=== PATIENT | male | born 1955 | race Caucasian/White ===

== ENCOUNTER 2020-12-18 15:31 | Inpatient (IN) | payer OTHER ==
[~2020-12-18] VITALS: Ht 172.7 cm; Wt 74.4 kg
[2020-12-18 15:40] LABS: COLLECTION METHOD CLEAN CATCH
[2020-12-18 16:20] LABS: PH 6 (5-8); SQUAMOUS EPITHELIAL None Seen /hpf; URINE APPEARANCE Clear; URINE BACTERIA None Seen /hpf; URINE BILIRUBIN Negative (NEGATIVE); URINE BLOOD Negative (NEGATIVE); URINE COLOR Yellow; URINE GLUCOSE Negative (NEGATIVE); URINE KETONE Negative (NEGATIVE); URINE LEUKOCYTE ESTERASE Negative (NEGATIVE); URINE NITRATE Negative (NEGATIVE); URINE PROTEIN(semi-quant) Negative (NEGATIVE); URINE RBC 0-2 /hpf; URINE UROBILINOGEN Negative (NEGATIVE)
[2020-12-18 16:33] LABS: HEMATOCRIT 41.2 % (42.0-52.0); HEMOGLOBIN 14.1 g/dl (13.5-18.0); MEAN CELL VOLUME 95 fl (80.0-100.0); MEAN CORPUSCULAR HEMOGLOBIN 33 pg (27.0-31.0); MEAN CORPUSCULAR HGB CONC 34 g/dl (33.0-37.0); MEAN PLATELET VOLUME 10.4 fl (7.4-10.4); PLATELET COUNT 344 K/mm3 (130-400); RED BLOOD COUNT 4.33 M/mm3 (4.20-5.60); REDCELL DISTRIBUTION WIDTH-CV 11.9 % (11.5-14.5)
[2020-12-18 16:39] LABS: ALANINE AMINOTRANSFERASE 38 U/L (4-49); ALBUMIN 3.5 gm/dL (3.5-5.0); ALKALINE PHOSPHATASE 125 U/L (50-136); ANION GAP 9 mmol/L (7-16); AST,SGOT 45 U/L (15-37); BILIRUBIN,TOTAL 1.1 mg/dL (0.0-1.0); BLOOD UREA NITROGEN 14 mg/dL (9-20); CALCIUM 8.7 mg/dL (8.4-10.2); CARBON DIOXIDE 23 mmol/L (22-30); CHLORIDE 98 mmol/L (98-107); CREATININE, serum 0.96 (0.66-1.25); GLUCOSE 121 mg/dL (74-106); POTASSIUM 4.1 mmol/L (3.4-5.0); SODIUM 131 mmol/L (137-145)
[2020-12-18 16:52] LABS: TROPONIN-I < 0.012 ng/mL (0.000-0.035)
[2020-12-18 17:09] LABS: C-REACTIVE PROTEIN 21.8 mg/dL (0.0-0.9)
[2020-12-18 17:26] LABS: INR 1.7 (0.8-3.0)
[2020-12-18 17:44] LABS: LYMPHOCYTE 4 % (20.0-51.0); MYELOCYTE 1 % (0-0); NEUTROPHILS 87 % (42.0-75.2); PLATELET ESTIMATE NORMAL (NORMAL)
[2020-12-18 20:20] VITALS: BP 126/75; PULSE 75; TEMP 99.4
[2020-12-19] VITALS (9 sets, daily range): BP systolic 124–148; BP diastolic 70–81; PULSE 70–87; TEMP 98.4–100.9
--- NOTE | 2020-12-19 00:34 | NUR ---
Shift assessment completed. Patient A/Ox4. Patient states feeling much better since he came to the hospital. Patient denies any pain or discomfort. Denies SOB/dyspnea, N/V, or diarrhea. Patient currently on oxygen 3L via NC. Breathing even and unlabored. No acute respiratory distresss noted. All scheduled meds given per JUL. First dose of Remdesivir given per JUL. Call light within reach. Will continue to monitor.
--- NOTE | 2020-12-19 05:48 | NUR ---
Patient had high temp of 100.2 at midnight. PRN Tylenol given per JUL. Temp 98.8 at 0400 am. Patient remains on oxygen 3L via NC over the night. No acute respiratory distress noted. Call light in reach. Will continue to monitor.
[2020-12-19 07:07] LABS: HEMOGLOBIN 13.3 g/dl (13.5-18.0); MEAN CELL VOLUME 97 fl (80.0-100.0); MEAN CORPUSCULAR HEMOGLOBIN 32 pg (27.0-31.0); MEAN CORPUSCULAR HGB CONC 33 g/dl (33.0-37.0); MEAN PLATELET VOLUME 10.8 fl (7.4-10.4); PLATELET COUNT 253 K/mm3 (130-400); RED BLOOD COUNT 4.13 M/mm3 (4.20-5.60)
[2020-12-19 07:11] LABS: CREATININE, serum 1.03 (0.66-1.25); MAGNESIUM 2.1 mg/dL (1.6-2.3); POTASSIUM 4.5 mmol/L (3.4-5.0)
--- NOTE | 2020-12-19 07:41 | NUR ---
Pt. awake and alert. This RN introduced herself to pt. Pt. OOB independently. Pt. denies needs at this time.
[2020-12-19 08:34] LABS: BAND 1 % (0-10); LYMPHOCYTE 4 % (20.0-51.0); NEUTROPHILS 85 % (42.0-75.2)
[2020-12-19 08:35] LABS: PLATELET ESTIMATE NORMAL (NORMAL)
--- NOTE | 2020-12-19 10:44 | NUR ---
The patient is COVID positive. SW contacted the patient's room phone to discuss discharge plan. The patient lives alone in [place]. He states that his three sons live nearby. He reports independence with ADLs and does not have any DME. The patient's PCP is Dr. Alana Alas and he receives his medications from [facility]. He reports no difficulties obtaining his meds. The patient does not have a DPOA-HC, but he states that he would be interested in obtaining a form. KHRIS to collaborate with the patient's RN to provide him with a form. The patient states that he is not and that he has three children: Aric (ph#[phone]), Skinny, and Rocael. The patient states that his phone is , so he does not have Skinny or Rocael's phone numbers at this time. The patient plans to return home upon discharge. He is currently on 3 liters of oxygen. SW to continue to monitor. *Discharge plan: home*
--- NOTE | 2020-12-19 11:15 | NUR ---
Pt. progressing w/ plan of care. Pt. educated on incentive spirometer. Pt. was able to achieve up to 500. Pt. reports feeling OK today. PRN cough medicine administered per pt. request & per order. Pt.'s daughter Ella updated on the phone. Call light in reach.
--- NOTE | 2020-12-19 14:08 | NUR ---
Pt. in good spirits. Pt.'s temp elevated today, temp resolved on its own and applying ice packs. Rendesivir administering per order. Needs addressed. Call light in reach.
[2020-12-20 04:32] VITALS: BP 124/78; PULSE 69; TEMP 98.4
--- NOTE | 2020-12-20 05:58 | NUR ---
PT HAD UNEVENTFUL NIGHT, 02 REMAINED 1L SATURATING WNL, PT REMAINED AFEBRILE. PT DENIES PAIN,N,V,D,CONSTIPATION. PT EXPRESSES NO ADDITONAL NEEDS AT THIS TIME. CALL LIGHT WITHIN REACH.
[2020-12-20 08:12] VITALS: BP 120/68; PULSE 77; TEMP 99.4
--- NOTE | 2020-12-20 11:13 | NUR ---
Pt. progressing with plan of care. Pt. denies needs. Pt. reports feeling much better. Pt. reports the hospitalist was in to see him and he reported she said she will be planning for discharge for him. This RN reported she did not see any discharge orders but will keep an eye out for them in his electronic medical chart.
[2020-12-20] MEDS ORDERED: OMNICEF 300MG300 MG PO (11:57)
[2020-12-20] MEDS ORDERED: DOXYCYCLINE HY100 MG PO (12:00)
[2020-12-20] MEDS ORDERED: PROAIR HFA0.09 MG/AC IH (12:02)
[2020-12-20] MEDS ORDERED: DECADRON6 MG PO (12:03)
[2020-12-20] MEDS ORDERED: RT Albuterol HFA MDI IH (12:08)
[2020-12-20] MEDS ORDERED: ELIQUIS 5MG PO (12:08)
[2020-12-20 13:18] VITALS: BP 128/79; PULSE 77; TEMP 99
--- NOTE | 2020-12-20 13:36 | NUR ---
Pt. was on 1L of 02 and saturation was 94%. This RN had patient ambulate in room while monitoring his O2 and HR. Pt.'s HR was around 90bpm and O2 sat stayed around 90%, pt. desated to 89% but remained above 90% most of ambulation. Dr. Meza notified on the phone the pt. was on O2 and the pt. reported the MD from yesterday said he may need oxygen to go home with. Dr. Meza placed new orders for pt. to do an ambulatory pulse ox with respiratory therapy.
--- NOTE | 2020-12-20 15:07 | NUR ---
The respiratory therapist Lisa completed the ambulatory pulse ox monitoring and the patient does not require supplemental oxygen for discharge. Dr. Meza notified via telephone.
--- NOTE | 2020-12-20 16:49 | NUR ---
Pt. to be discharged home. Both IVs in the left arm have been removed. All discharge instructions reviewed with patient. New home medications reviewed with the patient. All questions answered. Pt.'s daughter Ella notified about the plan. Plan for pt. to be picked up between 1730 and 1800.
--- NOTE | 2020-12-20 17:45 | NUR ---
Pt.'s ride here to pick the patient up. ROMERO Santiago was able to take the patient down to the ER entrance in a wheelchair so he could safely get home.
== END 2020-12-20 17:45 | disposition home or self-care (01) | DRG 177 ==
LOC: COL.ER 15:31 → MEDICAL 17:19
PROVIDERS: Nurse Practitioner; ADMIT Internal Medicine
PROC: XW033E5 Introduction of Remdesivir Anti-infective into Peripheral Vein, Percutaneous Approach, New Technology Group 5 (ICD-10-PCS; principal; 2020-12-19)
DX: U07.1 COVID-19 (principal); I26.99 Other pulmonary embolism without acute cor pulmonale; J12.82 Pneumonia due to coronavirus disease 2019; J96.01 Acute respiratory failure with hypoxia
CPT/HCPCS: 99223-AI; 99233-AI; 99239; A9284; J0696; J1644; J1650; J7050; J8540; Q9967

== ENCOUNTER 2020-12-28 04:54 | Emergency (ER) | payer OTHER ==
[~2020-12-28] VITALS: Ht 182.9 cm; Wt 93.2 kg
[~2020-12-28 04:54] MED LIST: DECADRON6 MG PO; DOXYCYCLINE HY100 MG PO; ELIQUIS 5MG PO; OMNICEF 300MG300 MG PO; PROAIR HFA0.09 MG/AC IH; RT Albuterol HFA MDI IH
[2020-12-28 05:10] VITALS: BP 120/84; TEMP 97.3
[2020-12-28 05:36] LABS: HEMATOCRIT 42.1 % (42.0-52.0); HEMOGLOBIN 14.3 g/dl (13.5-18.0); MEAN CELL VOLUME 97 fl (80.0-100.0); MEAN CORPUSCULAR HEMOGLOBIN 33 pg (27.0-31.0); MEAN CORPUSCULAR HGB CONC 34 g/dl (33.0-37.0); MEAN PLATELET VOLUME 9.7 fl (7.4-10.4); PLATELET COUNT 247 K/mm3 (130-400); RED BLOOD COUNT 4.33 M/mm3 (4.20-5.60); REDCELL DISTRIBUTION WIDTH-CV 12.6 % (11.5-14.5)
[2020-12-28 05:47] LABS: ALANINE AMINOTRANSFERASE 130 U/L (4-49); ALBUMIN 3.3 gm/dL (3.5-5.0); ALKALINE PHOSPHATASE 153 U/L (50-136); ANION GAP 5 mmol/L (7-16); AST,SGOT 46 U/L (15-37); BILIRUBIN,TOTAL 0.6 mg/dL (0.0-1.0); BLOOD UREA NITROGEN 14 mg/dL (9-20); CALCIUM 8.6 mg/dL (8.4-10.2); CARBON DIOXIDE 27 mmol/L (22-30); CHLORIDE 103 mmol/L (98-107); CREATININE, serum 0.94 (0.66-1.25); GLUCOSE 113 mg/dL (74-106); POTASSIUM 4.2 mmol/L (3.4-5.0); SODIUM 136 mmol/L (137-145); TOTAL PROTEIN 7.5 gm/dL (6.4-8.2)
[2020-12-28 06:08] LABS: TROPONIN-I < 0.012 ng/mL (0.000-0.035)
[2020-12-28 06:17] LABS: BAND 7 % (0-10); LYMPHOCYTE 21 % (20.0-51.0); METAMYELOCYTE 4 % (0-0); MYELOCYTE 2 % (0-0); NEUTROPHILS 63 % (42.0-75.2)
[2020-12-28 06:18] LABS: PLATELET ESTIMATE NORMAL (NORMAL)
[2020-12-28] MEDS ORDERED: AMOXICILLIN 8751 TAB PO (06:19)
== END 2020-12-28 07:38 | disposition home or self-care (01) ==
LOC: COL.ER 04:54
PROVIDERS: Emergency Medicine
DX: J18.9 Pneumonia, unspecified organism (principal); D72.829 Elevated white blood cell count, unspecified; Z86.711 Personal history of pulmonary embolism; Z86.16 Personal history of COVID-19; Z79.01 Long term (current) use of anticoagulants